=== PATIENT | female | born 2000 | race Caucasian/White ===

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

== ENCOUNTER → 2018-11-04 | Outpatient (CLI) | payer BC ==
--- NOTE | 2018-11-04 16:17 | RAD ---
Examination: Ultrasound medial posterior right thigh HISTORY: History of mass in the right thigh COMPARISON: None available. Findings/ impression: Moderate to diffuse soft tissue edema or cellulitis identified in the soft tissue of the medial thigh. In the medial posterior thigh region there is a small region of complex fluid extending to the skin could be a small complex fluid collection or phlegmon or abscess extending to the skin measuring 0.8 x 0.7 cm. Electronically signed by: Boom Trinidad MD (11/04/2018 4:15 PM) [place] [id number]
== END | disposition home or self-care (01) ==
LOC: US 15:08
PROVIDERS: ATTEND Surgery
DX: L02.415 Cutaneous abscess of right lower limb (principal); R22.41 Localized swelling, mass and lump, right lower limb
CPT/HCPCS: 76881

== ENCOUNTER → 2019-06-17 | Outpatient (CLI) | payer BC, OTHER ==
--- NOTE | 2019-06-17 12:22 | RAD ---
EXAM: Obstetrics sonogram. HISTORY: anatomy survey. TECHNIQUE: Sonographic imaging of a gravid uterus was performed. COMPARISON: None. FINDINGS: There is a single intrauterine fetus in cephalic presentation with a normal heart rate of 147 bpm. There is an anterior grade 1 placenta without evidence of placenta previa. The cervix is closed and measures 3.7 cm in length. There is a three-vessel umbilical cord with normal torsion. There is normal body motion. The amniotic fluid index is normal. The stomach, kidneys, bladder, spine, brain, facial profile, extremities and heart are unremarkable. The biparietal diameter is 4.8 cm, corresponding with 20 weeks and 4 days. The head circumference is 17.6 cm, corresponding with 20 weeks and 1 day. The abdominal circumference is 14.9 cm, corresponding with 20 weeks and 1 day. The femoral length is 3.2 cm, corresponding with 20 weeks and 0 days. The estimated gestational age patient combined ultrasound measurements is 20 weeks and 2 days and the estimated due date is 11/02/2019. IMPRESSION: 1. Single fetus in cephalic presentation with a normal heart rate and gestational age based on ultrasound measurements of 20 weeks and 2 days. 2. Unremarkable anatomy survey. Electronically signed by: Dania Dsouza MD (06/17/2019 12:19 PM) [id number]
== END | disposition home or self-care (01) ==
LOC: US 08:45
PROVIDERS: ATTEND Obstetrics & Gynecology
DX: Z34.92 Encounter for supervision of normal pregnancy, unspecified, second trimester (principal); Z3A.20 20 weeks gestation of pregnancy
CPT/HCPCS: 76805

== ENCOUNTER → 2019-08-05 | Outpatient (CLI) | payer BC, OTHER | END | disposition home or self-care (01) | LOC: LAB 11:14 | PROVIDERS: ATTEND Obstetrics & Gynecology | DX: Z34.92 Encounter for supervision of normal pregnancy, unspecified, second trimester (principal); Z3A.26 26 weeks gestation of pregnancy | CPT/HCPCS: 36415; 82950 ==

== ENCOUNTER → 2019-08-19 | Outpatient (CLI) | payer BC, OTHER | END | disposition home or self-care (01) | LOC: LAB 08:24 | PROVIDERS: ATTEND Obstetrics & Gynecology | DX: Z34.93 Encounter for supervision of normal pregnancy, unspecified, third trimester (principal); Z3A.28 28 weeks gestation of pregnancy | CPT/HCPCS: 36415 ==

== ENCOUNTER 2020-03-08 17:03 | Emergency (ER) | payer BC, OTHER ==
[~2020-03-08] VITALS: Ht 170.2 cm; Wt 112.8 kg
--- NOTE | 2020-03-08 17:30 | PHYS DOC ---
Past History Past Medical History: GERD, Ovarian Cyst General Adult EDM: Chief Complaint: ABDOMINAL PAIN HPI: HPI: Patient is a 19 year old female who presents with above hx of abdomen pain with starting today.Pt. is intake of bad food. No history of trauma. No history of ill contacts. Marked discomfort to onset 1430 today. Pain is described as crampy. No history of constipation. Had 1 loose stool. Patient unsure of her status. Pt.follows with [facility] for care. No history of travel. No history immunosuppression. Review of Systems: Review of Systems: Constitutional: Denies fever or chills Eyes: Denies change in visual acuity HENT: Denies nasal congestion or sore throat Respiratory: Denies cough or shortness of breath Cardiovascular: Denies chest pain or edema GI: Complains of abdominal pain, nausea,. Denies vomiting, bloody stools or miguelito rrhea : Denies dysuria Musculoskeletal: Denies back pain or joint pain Integument: Denies rash Neurologic: Denies headache, focal weakness or sensory changes Endocrine: Denies polyuria or polydipsia Lymphatic: Denies swollen glands Psychiatric: Denies depression or anxiety Heart Score: HEART Score for Chest Pain: HEART Score for Chest Pain Response (Comments) Value History Slighlty/Non-Suspicious 0 ECG Normal 0 Age < 45 0 Risk Factors No Risk Factors 0 Troponin < Normal Limit 0 Total 0 Risk Factors: Risk Factors: DM, Current or recent (<one month) smoker, HTN, HLP, family history of CAD, obesity. Risk Scores: Score 0 - 3: 2.5% MACE over next 6 weeks - Discharge Home Score 4 - 6: 20.3% MACE over next 6 weeks - Admit for Clinical Observation Score 7 - 10: 72.7% MACE over next 6 weeks - Early Invasive Strategies Family History: Family History: Noncontributory Current Medications: Current Meds: See nursing for home meds Allergies: Allergies: No known drug allergies Physical Exam: PE: Constitutional: moderate acute distress, non-toxic appearance. [] HENT: Normocephalic, atraumatic, bilateral external ears normal, oropharynx moist, no oral exudates, nose normal. [] Eyes: PERRLA, EOMI, conjunctiva normal, no discharge. [] Neck: Normal range of motion, no tenderness, supple, no stridor. [] Cardiovascular:Heart rate regular rhythm, no murmur [] Lungs & Thorax: Bilateral breath sounds equal apex on auscultation [] Abdomen: Bowel sounds normal, soft, lower right pelvic and right upper tenderness, no masses, no pulsatile masses. [] Rebound to right upper and mid abdomen Skin: Warm, dry, no erythema, no rash. [] Back: Low back tenderness, no CVA tenderness. [] Extremities: No tenderness, no cyanosis, no clubbing, ROM intact, no edema. [] No psoas sign. Neurologic: Alert and oriented X 3, normal motor function, normal sensory function, no focal deficits noted. [] DTRs +2 at patella and brachial Psychologic: Affect anxious, judgement normal, mood normal. [] EKG: EKG: [] Radiology/Procedures: Radiology/Procedures: [][place] [id number] IMAGING REPORT Signed PATIENT: OTILIO ANDERSON V ACCOUNT: [id number] : 2000 LOCATION: ER AGE: 19 SEX: F EXAM STATUS: REG ER ORD. PHYSICIAN: HARMONY ANAYA MD REASON: OMNI 300,75ML IV.OMNI 240 30ML PO.Rt. lower abdomen pain PROCEDURE: CT ABD PELV W/ORAL&IV CONTRAST Exam: CT of abdomen and pelvis with contrast INDICATION: Right lower abdominal pain TECHNIQUE: Sequential axial images through the abdomen and pelvis obtained following menstruation of 75 mL of Omni 300 IV contrast. Sagittal and coronal reformatted images were reconstructed from the axial data and reviewed. Comparisons: None FINDINGS: Heart size is normal. No pericardial effusion. Visualized lung bases are clear. No pleural effusion. Liver, spleen, pancreas, gallbladder and adrenals are unremarkable. No perinephric inflammation or hydronephrosis. No renal or ureteral calculi are identified. Bladder is partially distended and appears thin-walled. Uterus is nonenlarged. IUD is noted within the uterus. Cystic lesion at the adnexa bilaterally likely within the ovaries. Large and small bowel are unremarkable. Appendix is normal. No free intra-abdominal air or fluid. No obstruction. Abdominal aorta has a normal course and caliber. Abdominal vasculature is patent. No enlarged abdominal lymph nodes are identified. No suspicious osseous lesions or acute fractures. IMPRESSION: 1. Normal appendix. 2. Cystic lesions in the adnexa bilaterally likely ovarian in etiology. This is incompletely characterized on CT. Exposure: One or more of the following in the visualized dose reduction techniques were utilized for this examination: 1. Automated exposure control 2. Adjustment of the MA and/or KV according to patient size 3. Use of iterative of reconstructive technique Electronically signed by: Rand Calhoun MD (03/08/2020 10:43 PM) [facility] DICTATED AND SIGNED BY: RAND CALHOUN MD DATE: 03/08/20 2243 CC: HARMONY ANAYA MD; JESIKA HOWARD ~ Course & Med Decision Making: Course & Med Decision Making Pertinent Labs and Imaging studies reviewed. (See chart for details) patient stay on clear fluid diet only for the next 2 days. No solids or milk products. Must allow bowel rest. Push fluids. Take Tylenol ibuprofen for pain. Follow- up primary care. Follow-up culture. Patient informed that suspect cause of pain is a ovarian cyst. Patient consider control for control of cyst of this is a persistent problem. Must follow-up. Must have reexam if no improvement. Impression: 1. Abdomen pain 2. Ovarian cyst [] [place] Disclaimer: [facility] Disclaimer: This electronic medical record was generated, in whole or in part, using a voice recognition dictation system. Departure Departure: Disposition: HOME/RESIDENCE PRIOR TO ADM Condition: STABLE Referrals: JESIKA HOWARD (PCP) [place] Disclaimer This chart was dictated in whole or in part using Voice Recognition software in a busy, high-work load, and often noisy Emergency Department environment. It may contain unintended and wholly unrecognized errors or omissions. HARMONY ANAYA MD Mar 08, 2020 17:30
[2020-03-08] MEDS ORDERED: IV RINGERS SOLUTION,LACTATED 1,000 ML IV SCH (17:31)
[2020-03-08] MEDS ORDERED: ONDANSETRON PF 4 MG/2 ML VIAL. IVP ONE (17:45)
[2020-03-08] MEDS ORDERED: FAMOTIDINE 20 MG/2 ML VIAL IVP ONE (17:45)
[2020-03-08 18:14] LABS: BASO # 0.1 x10^3/uL (0.0-0.2); BASO % 1 % (0-3); EOS # 0.2 x10^3/uL (0.0-0.7); EOS % 2 % (0-3); HEMATOCRIT 44.6 % (36.0-47.0); HEMOGLOBIN 14.8 g/dL (12.0-15.5); LYMPH # 1.8 x10^3/uL (1.0-4.8); LYMPH % 20 % (24-48); MEAN CORPUSCULAR HEMOGLOBIN 29 pg (25-35); MEAN CORPUSCULAR HGB CONC 33 g/dL (31-37); MEAN CORPUSCULAR VOLUME 88 fL (79-100); MONO # 0.5 x10^3/uL (0.0-1.1); MONO % 6 % (0-9); NEUT # 6.5 x10^3uL (1.8-7.7); NEUT % 72 % (31-73); PLATELET COUNT 326 x10^3/uL (140-400); WHITE BLOOD COUNT 9.1 x10^3/uL (4.0-11.0)
[2020-03-08 18:20] LABS: BARBITURATES NEG (NEG); BENZODIAZEPINES NEG (NEG); CANNABINOIDS NEG (NEG); COCAINE NEG (NEG); METHADONE NEG (NEG); OPIATES NEG (NEG); PHENCYCLIDINE NEG (NEG)
[2020-03-08 18:21] LABS: AMPHETAMINE/METHAMPHETAMINE NEG (NEG)
[2020-03-08 18:28] LABS: COLOR,URINE YELLOW
[2020-03-08 18:29] LABS: BACTERIA,URINE 0 /HPF (0-FEW); BILIRUBIN,URINE NEG (NEG); CLARITY,URINE CLEAR; GLUCOSE,URINE NEG (NEG); NITRITE,URINE NEG (NEG); UROBILINOGEN,URINE 0.2 mg/dL (0.2 mg/dL); WBC,URINE OCC /HPF (0-4)
[2020-03-08 18:50] LABS: CALCIUM 9.5 mg/dL (8.5-10.1); CREATININE 0.9 mg/dL (0.6-1.0); POTASSIUM 3.9 mmol/L (3.5-5.1)
[2020-03-08 18:56] LABS: ALBUMIN 4.2 g/dL (3.4-5.0); DIRECT BILIRUBIN 0.1 mg/dL (0.0-0.2); TOTAL BILIRUBIN 0.4 mg/dL (0.2-1.0); TOTAL PROTEIN 8.6 g/dL (6.4-8.2)
[2020-03-08 19:20] VITALS: BP 132/76
[2020-03-08] MEDS ORDERED: IOHEXOL 240 MG/ML 50ML VIAL. ONE (20:08)
--- NOTE | 2020-03-08 21:20 | RAD ---
EXAM: ACUTE ABDOMEN SERIES 03/08/2020 7:54 PM CLINICAL INDICATION:Pain COMPARISON:None TECHNIQUE:AP supine and upright views of the abdomen and PA view of the chest FINDINGS:The heart and mediastinum are normal. Lungs are well-expanded and clear. No pleural effusion or pneumothorax. Bowel gas pattern is nonspecific and nonobstructive. No pneumoperitoneum. Normal volume of stool. No abnormal calcifications. Transitional anatomy is noted at the lumbosacral junction. IMPRESSION:No acute abnormality in the chest or abdomen. Electronically signed by: Eden Harmon MD (03/08/2020 9:18 PM) [id number]
--- NOTE | 2020-03-08 22:46 | RAD ---
Exam: CT of abdomen and pelvis with contrast INDICATION: Right lower abdominal pain TECHNIQUE: Sequential axial images through the abdomen and pelvis obtained following menstruation of 75 mL of Omni 300 IV contrast. Sagittal and coronal reformatted images were reconstructed from the axial data and reviewed. Comparisons: None FINDINGS: Heart size is normal. No pericardial effusion. Visualized lung bases are clear. No pleural effusion. Liver, spleen, pancreas, gallbladder and adrenals are unremarkable. No perinephric inflammation or hydronephrosis. No renal or ureteral calculi are identified. Bladder is partially distended and appears thin-walled. Uterus is nonenlarged. IUD is noted within the uterus. Cystic lesion at the adnexa bilaterally likely within the ovaries. Large and small bowel are unremarkable. Appendix is normal. No free intra-abdominal air or fluid. No obstruction. Abdominal aorta has a normal course and caliber. Abdominal vasculature is patent. No enlarged abdominal lymph nodes are identified. No suspicious osseous lesions or acute fractures. IMPRESSION: 1. Normal appendix. 2. Cystic lesions in the adnexa bilaterally likely ovarian in etiology. This is incompletely characterized on CT. Exposure: One or more of the following in the visualized dose reduction techniques were utilized for this examination: 1. Automated exposure control 2. Adjustment of the MA and/or KV according to patient size 3. Use of iterative of reconstructive technique Electronically signed by: Rand Alex MD (03/08/2020 10:43 PM) [facility]
[2020-03-08] MEDS ORDERED: IOHEXOL 300 MG/ML 75 ML VIAL. IV ONE (23:15)
== END 2020-03-09 00:20 | disposition home or self-care (01) ==
LOC: ER 17:03
DX: N83.201 Unspecified ovarian cyst, right side (principal); K21.9 Gastro-esophageal reflux disease without esophagitis
CPT/HCPCS: 36415; 74022; 74177; 80048; 80076; 80307; 81001; 81025; 83690; 85025; 85610; 85730; 96361; 96374; 96375; 99285; J2405; J3490; J7120; Q9967

== ENCOUNTER → 2020-07-24 | Outpatient (CLI) | payer BC, OTHER | LOC: LAB 14:07 | PROVIDERS: ATTEND Obstetrics & Gynecology | DX: Z30.9 Encounter for contraceptive management, unspecified (principal) | CPT/HCPCS: 36415; 84702 ==

== ENCOUNTER → 2020-11-30 | Outpatient (CLI) | payer OTHER, BC ==
--- NOTE | 2020-11-30 10:22 | RAD ---
INDICATION: Reason: LOW BACK PAIN / Spl. Instructions: / History: COMPARISON: May 28, 2020 IMPRESSION: Lumbar spine: 3 views obtained. No acute fracture or dislocation. Similar to prior. Electronically signed by: Madan Ahumada MD (11/30/2020 10:20 AM) [id number]
== END ==
LOC: RAD 08:44
PROVIDERS: ATTEND Family Medicine
DX: M54.5 Low back pain (principal)
CPT/HCPCS: 72100